=== PATIENT | male | born 1965 | race Caucasian/White ===

== ENCOUNTER 2018-04-11 17:23 | Emergency (ER) | payer OTHER ==
[~2018-04-11] VITALS: Ht 180.3 cm; Wt 142.6 kg
[2018-04-11 17:25] VITALS: TEMP 36.6; Ht 180.3 cm; Wt 142.6 kg
[2018-04-11] MEDS ORDERED: ONDANSETRON INJ 2 MG/ML 2 ML VIAL IV STA (17:38)
[2018-04-11] MEDS ORDERED: MoRPHine SULFATE 10 MG/ML CARP/VIAL IV STA (17:38)
[2018-04-11] MEDS ORDERED: SODIUM CHLORIDE 0.9% 1000ML 1,000 ML IV ONE (17:45)
[2018-04-11 18:28] LABS: BASO % 0.6 %; BASO ABS # 0.08 K/uL (0-0.2); EOS % 1.7 %; EOS ABS # 0.22 K/uL (0-0.5); HEMATOCRIT 48.9 % (42-52); HEMOGLOBIN 16.7 g/dL (14.0-18.0); IG# 0.04 K/uL (0.00-0.02); LYMPH % 26.5 %; LYMPH ABS # 3.45 K/uL (1.2-3.4); MEAN CELL VOLUME 92.8 fL (80-100); MEAN CORPUSCULAR HEMOGLOBIN 31.7 pg (25-34); MEAN CORPUSCULAR HGB CONC 34.2 g/dl (32-36); MEAN PLATELET VOLUME 10.7 fL (7.4-10.4); MONO % 6.6 %; MONO ABS # 0.86 K/uL (0.11-0.59); NEUT % 64.3 %; NEUT ABS # 8.35 K/uL (1.4-6.5); PLATELET COUNT 174 K/uL (130-400); RED CELL DISTRIBUTION WIDTH CV 13.8 % (11.5-14.5); RED CELL DISTRIBUTION WIDTH SD 46.6 fL (36.4-46.3)
[2018-04-11] MEDS ORDERED: GLCSR500 PO (18:41)
[2018-04-11] MEDS ORDERED: DULO60CA44 PO (18:41)
[2018-04-11] MEDS ORDERED: CYM/30 PO (18:41)
[2018-04-11] MEDS ORDERED: ASPI81TA28 PO (18:41)
[2018-04-11] MEDS ORDERED: GABA600T PO (18:41)
[2018-04-11] MEDS ORDERED: TRAZ50TA35 PO (18:41)
[2018-04-11] MEDS ORDERED: DICY20TA10 PO (18:41)
[2018-04-11] MEDS ORDERED: TRAM-10 PO (18:41)
[2018-04-11] MEDS ORDERED: NTRGSL/4 UT (18:41)
[2018-04-11] MEDS ORDERED: PANT40TA PO (18:41)
[2018-04-11] MEDS ORDERED: DIPH-416 PO (18:41)
[2018-04-11] MEDS ORDERED: ATOR80TA PO (18:41)
[2018-04-11] MEDS ORDERED: FENO160T PO (18:41)
[2018-04-11 18:46] LABS: PTT PATIENT 24.7 SECONDS (21.0-31.0)
[2018-04-11 18:51] LABS: ALBUMIN 3.5 gm/dl (3.4-5.0); CALCIUM 8.2 mg/dl (8.5-10.1); CREATININE 0.88 mg/dl (0.60-1.40); POTASSIUM 3.8 mmol/L (3.5-5.1); TOTAL PROTEIN 6.8 gm/dl (6.4-8.2)
[2018-04-11] MEDS ORDERED: KETOROLAC TROMETHAMINE 30 MG/ML VIAL IV STA (18:58)
[2018-04-11] MEDS ORDERED: ACETAMINOPHEN 500 MG TAB PO STA (18:58)
--- NOTE | 2018-04-11 19:20 | DIAGNOSTIC IMAGING REPORT ---
HEAD CT NONCONTRAST CT DOSE: 537.48 mGy.cm HISTORY: Headache. Vision changes. TECHNIQUE: Multiaxial CT images of the head were performed without the use of intravenous contrast. Automated exposure control was utilized for this study. A dose lowering technique was utilized adhering to the principles of ALARA. Comparison: None. Findings: The paranasal sinuses and mastoid air cells are clear. The calvarium and skull base are intact. The ventricles and sulci are within normal limits. There is no mass, hematoma, midline shift, or acute infarct. Impression: No acute intracranial abnormality. Electronically signed by: Lonnie Allen M.D. 04/11/2018 7:18 PM Dictated Date/Time: 04/11/2018 7:13 PM
[2018-04-11] MEDS ORDERED: LORAZEPAM 2 MG/ML 1 ML VIAL IV STA (19:22)
--- NOTE | 2018-04-11 21:24 | DIAGNOSTIC IMAGING REPORT ---
BRAIN COMBO HISTORY: 52 years-old Male Atypical migraine. Left eye visual changes. Acute migraine headache COMPARISON: CT head of same day TECHNIQUE: Multiplanar multisequence MRI of the brain was obtained both with and without the use of 14 mL Gadavist. FINDINGS: Large field view curriculum consultant localizer images demonstrate no gross abnormality. Midline structures including the corpus callosum, brainstem, optic chiasm, pituitary and pineal glands appear unremarkable on the sagittal T1 series. There is no cerebellar tonsillar herniation. Degenerative changes about the imaged cervical spine are noted. There is no restricted diffusion to suggest acute or subacute infarction. There is no acute intracranial hemorrhage, midline shift, abnormal extra-axial collections, hydrocephalus or intracranial mass. There are a few punctate foci of T2/FLAIR prolongation about the subcortical and periventricular white matter, notably within the left parietal occipital lobe. These are likely of no clinical significance, possibly reflecting gliosis from remote insult or early chronic microvascular ischemic changes. Major flow voids appear patent. Orbits are within normal limits. Mastoid air cells and paranasal sinuses are generally clear. Mild rightward bowing and spurring of the nasal septum. There is no abnormal intra-axial or extra-axial enhancement. IMPRESSION: 1. No acute intracranial abnormality. 2. No acute or subacute infarction or abnormal enhancement. The above report was generated using voice recognition software. It may contain grammatical, syntax or spelling errors. Electronically signed by: Carrington Sarkar M.D. 04/11/2018 9:23 PM Dictated Date/Time: 04/11/2018 9:15 PM
[2018-04-11] MEDS ORDERED: OXYCODONE IR HOME PACK PO ONE (22:15)
[2018-04-11 22:24] VITALS: BP 120/75; PULSE 70; O2SAT 95
--- NOTE | 2018-04-11 22:30 | EMERGENCY ROOM VISIT NOTE ---
History First contact with patient: 17:29 Chief Complaint: HEADACHE Stated Complaint: HEADACHE, LOSS OF VISION IN LEFT EYE History of Present Illness The patient is a 52 year old male who presents to the Emergency Room with complaints of headache symptoms for the past 3 days. The patient does not typically have migraine headaches and this is atypical for him. The patient is diabetic with a history of dyslipidemia and lower extremity neuropathy. He went to his primary care physician with these complaints as he is also experiencing visual changes in his left eye. The patient states the headache is primarily in the front of his head with some radiation posteriorly. He does not have injury or trauma. No distinct temporal tenderness. The patient is not having difficulty using his arms or legs. No changes in ambulation. He describes a crescent-shaped line in his lower visual field of the left eye that makes it difficult for him to see. The patient is not dizzy. He rates his current discomfort a 6/10. The pain has been improved with Tylenol at home. Review of Systems More than 10 systems were reviewed and otherwise negative with the exception of history of present illness. Past Medical/Surgical History History of diabetes, dyslipidemia, neuropathy, chest pain Family History No additionally pertinent family history Social History Smoking Status: Current Every Day Smoker Housing Status: lives with significant other Current/Historical Medications Scheduled Aspirin (Aspirin Ec), 81 MG PO QAM Atorvastatin (Lipitor), 80 MG PO HS Dicyclomine Hcl (Dicyclomine Hcl), 20 MG PO TID Duloxetine HCl (Cymbalta), 30 MG PO QAM Duloxetine Hcl (Cymbalta), 60 MG PO QAM Fenofibrate (Tricor), 160 MG PO QAM Gabapentin (Neurontin), 600 MG PO TID Metformin HCl (Metformin HCl ER), 500 MG PO BID Nitroglycerin (Nitrostat), 0.4 MG UT PRN Pantoprazole (Protonix), 80 MG PO QAM Trazodone Hcl (Trazodone), 50 MG PO HS Scheduled PRN Diphenoxylate/Atropine (Lomotil), 1 TAB PO QID PRN for Diarrhea Tramadol (Ultram), 50 MG PO Q6 PRN for Pain Physical Exam Vital Signs Date Time Temp Pulse Resp B/P (MAP) Pulse Ox O2 Delivery O2 Flow Rate FiO2 04/11/18 21:09 73 04/11/18 21:00 72 18 198/91 94 Room Air 04/11/18 19:30 74 20 161/81 93 Room Air 04/11/18 18:35 83 20 131/75 95 Room Air 04/11/18 18:00 82 04/11/18 17:25 36.6 90 17 144/89 96 Room Air Physical Exam VITALS: Vitals are noted on the nurse's note and reviewed by myself. Vital signs stable. GENERAL: Obese white male who appears older than his stated age EARS: External ear normal. External auditory canals clear, tympanic membranes pearly stringer without erythema or effusion bilaterally. EYES: Pupils equal round and reactive to light and accommodation. Conjunctivae without injection, sclerae without icterus. Extraocular movements intact. Unable to perform visual acuity to the left eye. No temporal tenderness NOSE: Patent, turbinates without inflammation or discharge. MOUTH: Mucous membranes moist. Tonsils are not enlarged. Pharynx without erythema, blood, or exudate. Uvula midline. Airway patent. NECK: Cervical spine is nontender. No significant bruits HEART: Regular rate and rhythm LUNGS: Clear to auscultation bilaterally without wheezes, rales or rhonchi. No retractions or accessory muscle use. MUSCULOSKELETAL: No muscle atrophy, erythema, or edema noted. Full range of motion in all extremities. Strength 5/5 throughout bilateral upper and lower extremities NEURO: Patient was alert and oriented to person place and time. CN II through XII grossly intact. No focal neurological deficits. Medical Decision & Procedures ER Provider Diagnostic Interpretation: HEAD CT NONCONTRAST CT DOSE: 537.48 mGy.cm HISTORY: Headache. Vision changes. TECHNIQUE: Multiaxial CT images of the head were performed without the use of intravenous contrast. Automated exposure control was utilized for this study. A dose lowering technique was utilized adhering to the principles of ALARA. Comparison: None. Findings: The paranasal sinuses and mastoid air cells are clear. The calvarium and skull base are intact. The ventricles and sulci are within normal limits. There is no mass, hematoma, midline shift, or acute infarct. Impression: No acute intracranial abnormality. BRAIN COMBO HISTORY: 52 years-old Male Atypical migraine. Left eye visual changes. Acute migraine headache COMPARISON: CT head of same day TECHNIQUE: Multiplanar multisequence MRI of the brain was obtained both with and without the use of 14 mL Gadavist. FINDINGS: Large field view progressive die maker localizer images demonstrate no gross abnormality. Midline structures including the corpus callosum, brainstem, optic chiasm, pituitary and pineal glands appear unremarkable on the sagittal T1 series. There is no cerebellar tonsillar herniation. Degenerative changes about the imaged cervical spine are noted. There is no restricted diffusion to suggest acute or subacute infarction. There is no acute intracranial hemorrhage, midline shift, abnormal extra-axial collections, hydrocephalus or intracranial mass. There are a few punctate foci of T2/FLAIR prolongation about the subcortical and periventricular white matter, notably within the left parietal occipital lobe. These are likely of no clinical significance, possibly reflecting gliosis from remote insult or early chronic microvascular ischemic changes. Major flow voids appear patent. Orbits are within normal limits. Mastoid air cells and paranasal sinuses are generally clear. Mild rightward bowing and spurring of the nasal septum. There is no abnormal intra-axial or extra-axial enhancement. IMPRESSION: 1. No acute intracranial abnormality. 2. No acute or subacute infarction or abnormal enhancement. Laboratory Results 04/11/18 18:02 Red Blood Count 5.27, Mean Corpuscular Volume 92.8, Mean Corpuscular Hemoglobin 31.7, Mean Corpuscular Hemoglobin Concent 34.2, Mean Platelet Volume 10.7, Neutrophils (%) (Auto) 64.3, Lymphocytes (%) (Auto) 26.5, Monocytes (%) (Auto) 6.6, Eosinophils (%) (Auto) 1.7, Basophils (%) (Auto) 0.6, Neutrophils # (Auto) 8.35, Lymphocytes # (Auto) 3.45, Monocytes # (Auto) 0.86, Eosinophils # (Auto) 0.22, Basophils # (Auto) 0.08 04/11/18 18:02 Test 04/11/18 18:02 04/11/18 18:08 White Blood Count 13.00 K/uL (4.8-10.8) Red Blood Count 5.27 M/uL (4.7-6.1) Hemoglobin 16.7 g/dL (14.0-18.0) Hematocrit 48.9 % (42-52) Mean Corpuscular Volume 92.8 fL (80-100) Mean Corpuscular Hemoglobin 31.7 pg (25-34) Mean Corpuscular Hemoglobin Concent 34.2 g/dl (32-36) Platelet Count 174 K/uL (130-400) Mean Platelet Volume 10.7 fL (7.4-10.4) Neutrophils (%) (Auto) 64.3 % Lymphocytes (%) (Auto) 26.5 % Monocytes (%) (Auto) 6.6 % Eosinophils (%) (Auto) 1.7 % Basophils (%) (Auto) 0.6 % Neutrophils # (Auto) 8.35 K/uL (1.4-6.5) Lymphocytes # (Auto) 3.45 K/uL (1.2-3.4) Monocytes # (Auto) 0.86 K/uL (0.11-0.59) Eosinophils # (Auto) 0.22 K/uL (0-0.5) Basophils # (Auto) 0.08 K/uL (0-0.2) RDW Standard Deviation 46.6 fL (36.4-46.3) RDW Coefficient of Variation 13.8 % (11.5-14.5) Immature Granulocyte % (Auto) 0.3 % Immature Granulocyte # (Auto) 0.04 K/uL (0.00-0.02) Erythrocyte Sedimentation Rate 3 mm/hr (0-14) Prothrombin Time 10.2 SECONDS (9.0-12.0) Prothromb Time International Ratio 1.0 (0.9-1.1) Activated Partial Thromboplast Time 24.7 SECONDS (21.0-31.0) Partial Thromboplastin Ratio 1.0 Anion Gap 7.0 mmol/L (3-11) Est Creatinine Clear Calc Drug Dose 140.3 ml/min Estimated GFR () 113.7 Estimated GFR (Non- 98.1 BUN/Creatinine Ratio 13.9 (10-20) Calcium Level 8.2 mg/dl (8.5-10.1) Magnesium Level 2.0 mg/dl (1.8-2.4) Total Bilirubin 0.4 mg/dl (0.2-1) Aspartate Amino Transf (AST/SGOT) 14 U/L (15-37) Alanine Aminotransferase (ALT/SGPT) 40 U/L (12-78) Alkaline Phosphatase 119 U/L (45-117) C-Reactive Protein 0.65 mg/dl (0-0.29) Total Protein 6.8 gm/dl (6.4-8.2) Albumin 3.5 gm/dl (3.4-5.0) Globulin 3.3 gm/dl (2.5-4.0) Albumin/Globulin Ratio 1.1 (0.9-2) Thyroid Stimulating Hormone (TSH) 0.918 uIu/ml (0.300-4.500) Lyme Disease IgG Antibody NEG (NEG) Lyme Disease IgM Antibody NEG (NEG) Bedside Troponin I < 0.030 ng/ml (0-0.045) Medications Administered Medications (Trade) Dose Ordered Sig/Dat Route Start Time Stop Time Status Last Admin Dose Admin Sodium Chloride 1,000 ml @ 999 mls/hr Q1H1M ONCE IV 04/11/18 17:45 04/11/18 18:45 DC 04/11/18 18:33 999 MLS/HR Morphine Sulfate (MoRPHine SULFATE INJ) 6 mg NOW STAT IV 04/11/18 17:38 04/11/18 17:41 DC 04/11/18 18:32 6 MG Ondansetron HCl (Zofran Inj) 4 mg NOW STAT IV 04/11/18 17:38 04/11/18 17:41 DC 04/11/18 18:32 4 MG Ketorolac Tromethamine (Toradol Inj) 30 mg NOW STAT IV 04/11/18 18:58 04/11/18 19:00 DC 04/11/18 19:04 30 MG Acetaminophen (Tylenol Tab) 1,000 mg NOW STAT PO 04/11/18 18:58 04/11/18 19:00 DC 04/11/18 19:03 1,000 MG ED Course Physical exam and history were performed. Nursing notes, EMR, and Medication List were personally reviewed. Patient appears to have headache symptoms with visual changes for the past 3 days. The patient does not have obvious deficit to the bilateral upper and lower extremities. There is no facial drooping. IV access was established and labs were obtained. The patient was hydrated and medicated as above. CT scan was performed. The case was discussed with my attending physician who remained involved in care decision-making. The patient's blood work is as above and was reviewed. He does have a slightly elevated white blood cell count of 13,000 of unknown etiology. He does not have a significant anemia, bandemia, and transaminases are not diagnostic. TSH is euthyroid state. Lyme screen is negative. Head CT does not show acute process. Because of the patient's symptoms we did elect to perform MRI of the brain to further evaluate him from a neurologic standpoint. The patient was given a dose of Ativan prior to MRI. The MRI is as above and does not show process to otherwise explain the patient's symptoms. I did discuss the case with Neurology , Dr. Herbert at length, who recommends ophthalmology evaluation. I discussed the case with Dr. Ordonez, ophthalmology, who agrees with the need for further evaluation. The concern is for possible anterior ischemic optic neuropathy, for which the patient does have several risk factors for. Dr. Ordonez or one of his colleagues will see the patient in the office tomorrow. The patient was pleased with plan of care. He will be given a home pack of oxycodone to assist with pain control for tonight for his headache, which was significantly better after analgesics here. The patient is continue his aspirin and return to the ER if he has any worsening of his symptoms. The patient was discharged home under the care of a female regional sales representative who is acting as the semi truck driver today. The chart was completed utilizing [employer] Voice Recognition Software. Grammatical errors, random word insertions, pronoun errors, and incomplete sentences are an occasional consequence of this system due to software limitations, ambient noise, and hardware issues. Any formal questions or concerns about the content, text, or information contained within the body of this dictation should be directly addressed to the provider for clarification. . Medical Decision Differential diagnosis: Etiologies such as stroke, tumor, infection, hypoglycemia, electrolyte abnormalities, cardiac sources, intracerebral event, toxicologic, neurologic, as well as others were entertained. Blood Pressure Screening Blood pressure disposition: Elevated BP felt to be situational, Referred to PCP Impression Primary Impression: Headache Additional Impression: Visual disturbance Departure Information Dispostion Home / Self-Care Condition GOOD Referrals Rajan Ordonez D.O. Forms HOME CARE DOCUMENTATION FORM, IMPORTANT VISIT INFORMATION Patient Instructions My [facility] Additional Instructions You were seen and evaluated today on an emergency basis only. This is not a substitute for, or an effort to provide, complete comprehensive medical care. It is not possible to recognize and treat all injuries or illnesses in a single emergency department visit. For this reason it is recommended that you followup with ophthalmology tomorrow for ongoing care and evaluation. We have provided you information for Dr. Ordonez 's office. You may wish to follow with [facility] if this works better for your insurance. Continue your at-home medications prescribed. Oxycodone (OxyIR) 5mg: Take ONE pill by mouth every SIX hours for breakthrough pain. Avoid alcohol, operating machinery or dangerous equipment, working on ladders or roofs, DRIVING, or situations where being under the influence may be dangerous. It is recommended to use an [id number] stool softener such as Colace, 100mg twice daily while taking this medication to avoid constipation. You are welcome to return to the emergency department anytime with new, worsening, or concerning symptoms. Problem Qualifiers
== END 2018-04-11 22:25 | disposition home or self-care (01) ==
LOC: C.EDB 17:24 → C.EDC 22:25
DX: R51 Headache (principal); H53.9 Unspecified visual disturbance; E11.9 Type 2 diabetes mellitus without complications; E78.5 Hyperlipidemia, unspecified; Z79.82 Long term (current) use of aspirin; Z79.84 Long term (current) use of oral hypoglycemic drugs; Z79.899 Other long term (current) drug therapy; F17.200 Nicotine dependence, unspecified, uncomplicated